=== PATIENT | male | born 2000 | race Caucasian/White ===

== ENCOUNTER 2022-11-08 03:09 | Emergency (ER) | payer BC ==
[~2022-11-08] VITALS: Ht 185.4 cm; Wt 104.5 kg
[2022-11-08] MEDS ORDERED: ALBU6.7H14 INH (03:18)
[2022-11-08 03:57] VITALS: BP 158/85
[2022-11-08] MEDS ORDERED: dicyclomine 10 MG capsule PO ONE (04:25)
[2022-11-08] MEDS ORDERED: DICY10CA88 PO (04:26)
== END 2022-11-08 04:44 | disposition home or self-care (01) ==
LOC: ER 03:10
DX: R10.10 Upper abdominal pain, unspecified (principal); J45.909 Unspecified asthma, uncomplicated
CPT/HCPCS: 93005; 99283

== ENCOUNTER 2023-06-17 23:14 | Inpatient (IN) | payer BC ==
[~2023-06-17] VITALS: Ht 188 cm; Wt 109.1 kg
[~2023-06-17 23:14] MED LIST: ALBU6.7H14 INH; DICY10CA88 PO
[2023-06-18] VITALS (20 sets, daily range): BP systolic 133–166; BP diastolic 67–93; PULSE 61–108; RESP 12–23; TEMP 98.2–98.6; O2SAT 92–100
[2023-06-18 00:22] LABS: PLATELET COUNT 207 X10'3 (140-440)
[2023-06-18 00:24] LABS: BASOPHILS # (AUTO) 0.1 X10'3 (0-0.2); BASOPHILS % (AUTO) 0.3 % (0-1); EOSINOPHILS # (AUTO) 0.1 X10'3 (0-0.9); EOSINOPHILS % (AUTO) 0.7 % (0-6); HEMATOCRIT 45.9 % (42.0-52.0); HEMOGLOBIN 15.7 g/dl (14.0-17.9); LYMPHOCYTES # (AUTO) 2.2 X10'3 (1.1-4.8); LYMPHOCYTES % (AUTO) 12.7 % (21-51); MEAN CORPUSCULAR HEMOGLOBIN 29.2 PG (27.0-31.0); MEAN CORPUSCULAR HGB CONC 34.2 g/dL (33.0-36.5); MEAN CORPUSCULAR VOLUME 85.5 FL (78-98); MONOCYTES % (AUTO) 6.1 % (2-12); NEUTROPHILS # (AUTO) 13.6 X10'3 (1.8-7.7); NEUTROPHILS % (AUTO) 80.2 % (42-75); RED BLOOD COUNT 5.37 X10'6 (4.70-6.10); RED CELL DISTRIBUTION WIDTH 12.9 % (11.5-14.5)
[2023-06-18 00:30] LABS: ALANINE AMINOTRANSFERASE 44 U/L (12-78); ALBUMIN 4.3 G/DL (3.4-5.0); ALBUMIN/GLOBULIN RATIO 1.4 (1.1-1.5); ALKALINE PHOSPHATASE 72 IU/L (46-116); ANION GAP 7 (8-16); ASPARTATE AMINO TRANSFERASE 23 U/L (10-37); BILIRUBIN,TOTAL 0.3 MG/DL (0.1-1.0); BLOOD UREA NITROGEN 17 MG/DL (7-18); BUN/CREATININE RATIO 21.3 (10.0-20.0); CALCIUM 9.1 MG/DL (8.5-10.1); CHLORIDE 105 MMOL/L (99-107); GLUCOSE 97 MG/DL (70-104); POTASSIUM 4.1 MMOL/L (3.5-5.1); SODIUM 144 MMOL/L (135-145); TOTAL CARBON DIOXIDE 32.4 MMOL/L (24-32); TOTAL PROTEIN 7.3 G/DL (6.4-8.2); eCRCL 168 ML/MIN; eGFR > 90 ML/MIN
[2023-06-18 00:32] LABS: LIPASE < 50 U/L (73-393)
[2023-06-18 00:48] LABS: BILIRUBIN,URINE NEGATIVE (Neg); CLARITY,URINE CLEAR (Clear); COLOR,URINE YELLOW (Yellow); GLUCOSE, URINE NEGATIVE (Neg); KETONES,URINE NEGATIVE (Neg); LEUKOCYTE ESTERASE ,URINE NEGATIVE (Neg); NITRITES, URINE NEGATIVE (Neg); OCCULT BLOOD,URINE NEGATIVE (Neg); PROTEIN,URINE NEGATIVE (Neg); UROBILINOGEN,URINE 0.2 E.U/dL (0.2-1.0)
[2023-06-18 00:50] LABS: UA COLLECTION TYPE VOIDED
[2023-06-18] MEDS ORDERED: piperacillin/tazo 4.5gm/100ml 100 ML IV ONE (05:00)
[2023-06-18] MEDS ORDERED: morphine 4 MG/ML inj SYRINge IV ONE (05:05)
[2023-06-18] MEDS ORDERED: ondansetron/PF 4mg/2ml inj IV ONE (05:05)
[2023-06-18] MEDS ORDERED: magnesium 4gm in 100ml NS 100 ML IV PRN (05:25)
[2023-06-18] MEDS ORDERED: potassium Cl 20 mEq SR tablet PO PRN ×2 (05:25)
[2023-06-18] MEDS ORDERED: acetaminophen 325mg tablet PO PRN (05:25)
[2023-06-18] MEDS ORDERED: magnesium Cl slow-release 64mg tablet PO PRN (05:25)
[2023-06-18] MEDS ORDERED: ondansetron/PF 4mg/2ml inj IV PRN ×3 (05:25→16:40)
[2023-06-18] MEDS ORDERED: magnesium 2GM in 50ml NS 50 ML IV PRN (05:25)
[2023-06-18] MEDS ORDERED: morphine 2 MG/ML inj. syringe IV PRN ×2 (05:25→15:10)
[2023-06-18] MEDS ORDERED: potassium Cl 40MEQ/1/2NS 520ml 520 ML IV PRN (05:25)
[2023-06-18] MEDS: normal saline 1000ml 1,000 ML IV SCH ×2 (05:40→19:34)
[2023-06-18 07:31] LABS: MAGNESIUM 1.9 MG/DL (1.5-2.4)
--- NOTE | 2023-06-18 08:00 | NUR ---
Attempted report, RN to return call.
[2023-06-18] MEDS: K and/or MAG REPLACEMENT MC SCH ×2 (08:07→20:00)
--- NOTE | 2023-06-18 08:37 | NUR ---
Attempted report, no answer from unit.
--- NOTE | 2023-06-18 08:52 | NUR ---
Report [id number] 3rd Attempt notified charge
--- NOTE | 2023-06-18 09:00 | NUR ---
Report attempted nurse will call back.
--- NOTE | 2023-06-18 09:13 | NUR ---
Report to Melisa
[2023-06-18] MEDS ORDERED: BUPIVAcaine/PF 2.5 mg/ml (0.25%) 30ml vial ONE (14:58)
[2023-06-18] MEDS ORDERED: IBUP-1984 PO (15:09)
[2023-06-18] MEDS ORDERED: ringers solution, lacted 1,000 ML IV SCH (15:10)
[2023-06-18] MEDS ORDERED: morphine 4 MG/ML inj SYRINge IV PRN (15:10)
[2023-06-18] MEDS ORDERED: proCHLORperazine 10 MG/2 ml inj IV PRN (15:10)
[2023-06-18] MEDS ORDERED: meperidine/PF 25mg/ml syringe IV PRN ×3 (15:10)
[2023-06-18] MEDS ORDERED: sevoflurane 250ml liquid IH ONE (15:29)
[2023-06-18] MEDS ORDERED: fentaNYL/PF 50MCG/1 ML 2ML syringe ONE (15:34)
[2023-06-18] MEDS ORDERED: midazolam 1 mg/ML 2ml injection ONE (15:34)
[2023-06-18] MEDS ORDERED: propofol inj 20 ML IV ONE (15:43)
[2023-06-18] MEDS ORDERED: ceFOXitin 1000 MG inj ONE ×2 (15:43)
[2023-06-18] MEDS ORDERED: rocuronium 10mg/ml inj IV ONE (15:43)
[2023-06-18] MEDS ORDERED: dexamethasone sod phosphate 4mg/ml inj. ONE (15:56)
[2023-06-18] MEDS ORDERED: ondansetron/PF 4mg/2ml inj ONE (16:24)
[2023-06-18] MEDS ORDERED: neostigmine methylsulfate 1 MG/ML 10ml vial ONE (16:26)
[2023-06-18] MEDS ORDERED: glycopyrrolate 0.2mg/ml inj ONE (16:26)
[2023-06-18] MEDS ORDERED: BUPIVAcaine/PF 2.5 mg/ml (0.25%) 30ml vial IJ ONE (16:27)
[2023-06-18] MEDS ORDERED: naloxone 0.4 mg/ml inj IV PRN (16:40)
--- NOTE | 2023-06-18 16:41 | NUR ---
Received from OR via HOSPITAL BED, accompanied by Anesthesiologist and report given by Anesthesiologist, DR. MCELROY. PATIENT WAKING UP, NO S/S OF PAIN, V/S WNL, SCD ON, 20G TO R.AC, ABDOMEN LAP SITE CLEAN W/ NO S/S OF COMPLICATIONS
--- NOTE | 2023-06-18 17:50 | NUR ---
Patient in room ORTHO 4013. I have received report from recovery and had the opportunity to ask questions and assume patient care.
--- NOTE | 2023-06-18 18:00 | NUR ---
Patient in room ORTHO 4013. I have received report from [facility] Vincent and had the opportunity to ask questions and assume patient care.
--- NOTE | 2023-06-18 18:21 | NUR ---
PATIENT MEETS DISCHARGE CRITERIA FROM RECOVERY ROOM. STATES PAIN IS MANAGEABLE. LAP SITES X3 WITH BANDAIDS X3. REPORT GIVEN TO ASHTYN DIANE AT BEDSIDE IN PATIENT ROOM 5600X. ATTACHED TO VITAL SIGNS MACHINE, SCD PUMP AND IV PUMP PLUGGED IN.
--- NOTE | 2023-06-18 18:30 | NUR ---
Problems reprioritized. Patient report given, questions answered & plan of care reviewed with [facility] Pan.
[2023-06-18] MEDS: piperacillin/tazo 4.5gm/100ml 100 ML IV SCH (19:34)
[2023-06-19] MEDS: normal saline 1000ml 1,000 ML IV SCH ×2 (01:25→10:16)
[2023-06-19 01:45] VITALS: BP 141/80; PULSE 104; RESP 14; TEMP 98.1; O2SAT 95
[2023-06-19 06:00] VITALS: BP 122/65; PULSE 59; RESP 12; TEMP 97.3; O2SAT 94
--- NOTE | 2023-06-19 06:25 | NUR ---
Problems reprioritized. Patient report given, questions answered & plan of care reviewed with [facility] Vincent.
--- NOTE | 2023-06-19 06:33 | NUR ---
Patient in room ORTHO 4013. I have received report from [facility] Pan and had the opportunity to ask questions and assume patient care.
[2023-06-19 06:39] LABS: ALBUMIN 3.8 G/DL (3.4-5.0); ANION GAP 10 (8-16); BLOOD UREA NITROGEN 10 MG/DL (7-18); CALCIUM 9.2 MG/DL (8.5-10.1); CHLORIDE 103 MMOL/L (99-107); CREATININE 0.77 MG/DL (0.60-1.10); GLUCOSE 133 MG/DL (70-104); POTASSIUM 3.9 MMOL/L (3.5-5.1); SODIUM 138 MMOL/L (135-145); TOTAL CARBON DIOXIDE 24.8 MMOL/L (24-32); eCRCL 175 ML/MIN; eGFR > 90 ML/MIN
[2023-06-19 06:42] LABS: BASOPHILS % (AUTO) 0.3 % (0-1); EOSINOPHILS % (AUTO) 0 % (0-6); HEMATOCRIT 46.3 % (42.0-52.0); HEMOGLOBIN 15.7 g/dl (14.0-17.9); LYMPHOCYTES # (AUTO) 1.1 X10'3 (1.1-4.8); LYMPHOCYTES % (AUTO) 7.3 % (21-51); MEAN CORPUSCULAR HEMOGLOBIN 29.1 PG (27.0-31.0); MEAN CORPUSCULAR HGB CONC 33.8 g/dL (33.0-36.5); MEAN CORPUSCULAR VOLUME 86.2 FL (78-98); MEAN PLATELET VOLUME 8.3 FL (7.4-10.4); MONOCYTES # (AUTO) 0.8 X10'3 (0-0.9); MONOCYTES % (AUTO) 5.3 % (2-12); NEUTROPHILS # (AUTO) 12.8 X10'3 (1.8-7.7); NEUTROPHILS % (AUTO) 87.1 % (42-75); PLATELET COUNT 220 X10'3 (140-440); RED BLOOD COUNT 5.37 X10'6 (4.70-6.10); RED CELL DISTRIBUTION WIDTH 12.7 % (11.5-14.5); WHITE BLOOD COUNT 14.7 X10'3 (4.5-11.0)
[2023-06-19] MEDS: K and/or MAG REPLACEMENT MC SCH (08:00)
[2023-06-19] MEDS: piperacillin/tazo 4.5gm/100ml 100 ML IV SCH (08:52)
[2023-06-19] MEDS: HYDROcodone/acetaminophen 10/325mg tab PO PRN ×2 (08:53→13:12)
[2023-06-19 10:00] VITALS: BP 125/61; PULSE 81; RESP 17; TEMP 98.4; O2SAT 96
[2023-06-19] MEDS ORDERED: HYDR-3972 PO (10:32)
[2023-06-19] MEDS ORDERED: ONDA4TAB12 PO (10:32)
[2023-06-19 13:12] VITALS: RESP 14
--- NOTE | 2023-06-19 14:11 | NUR ---
pt was given discharge packet and discussed/answered any questions. He had all of his belongings, pt was stable and in no distress. Pt was wheelchaired down to the lobby and left with his Dad in a private vehicle.
== END 2023-06-19 14:11 | disposition home or self-care (01) | DRG 854 ==
LOC: ER 23:14 → ED HOLD 06-18 05:26 → ORTHO 4S 06-18 09:33
PROVIDERS: ADMIT Internal Medicine; ATTEND Family Medicine
PROC: 0DTJ4ZZ Resection of Appendix, Percutaneous Endoscopic Approach (ICD-10-PCS; principal; 2023-06-18 15:29)
DX: A41.9 Sepsis, unspecified organism (principal); K35.80 Unspecified acute appendicitis; J45.909 Unspecified asthma, uncomplicated; Z79.899 Other long term (current) drug therapy
CPT/HCPCS: 96374; 96375; 99285; Z7506; Z7508; 36415; 74176; 80048; 80053; 81003; 82948; 83605; 83690; 83735; 84132; 84145; 84484; 85025; 87040; 93005; A4215; A4314; A4618; A7000; G0378; J0694; J1100; J2175; J2250; J2270; J2405; J2543; J2704; J2710; J3010; J3490; J7030; J7120